=== PATIENT | male | born 1990 | race Caucasian/White ===

== ENCOUNTER 2019-01-09 18:34 | Emergency (ER) | payer MEDICAID ==
[~2019-01-09] VITALS: Ht 193 cm; Wt 108.2 kg
[2019-01-09 18:53] VITALS: BP 140/84
[2019-01-09] MEDS ORDERED: IBUPROFEN 800 MG TABLET PO ONE (19:45)
== END 2019-01-09 21:05 | disposition home or self-care (01) ==
LOC: EMS 18:36
DX: S62.620A Displaced fracture of middle phalanx of right index finger, initial encounter for closed fracture (principal); W21.05XA Struck by basketball, initial encounter; Y93.67 Activity, basketball; Y92.89 Other specified places as the place of occurrence of the external cause; Y99.8 Other external cause status

== ENCOUNTER 2019-01-26 20:44 | Emergency (ER) | payer MEDICAID ==
[~2019-01-26] VITALS: Ht 193 cm; Wt 109.1 kg
[2019-01-26 23:07] LABS: BASOPHILS % (AUTO) 0.7 % (0.0-2.0); HEMATOCRIT 42.1 % (41-53); HEMOGLOBIN 14.7 g/dL (13.5-17.5); LYMPHOCYTES # (AUTO) 2.9 K/uL (1.0-4.8); LYMPHOCYTES % (AUTO) 23.9 % (22.0-44.0); MEAN CORPUSCULAR HGB CONC 34.9 G/dL (31.0-37.0); MEAN CORPUSCULAR VOLUME 86 fL (80-100); MONOCYTES # (AUTO) 0.8 K/uL (0.1-1.0); MONOCYTES % (AUTO) 6.8 % (2.0-9.0); NEUTROPHILS % (AUTO) 66.6 % (40.0-70.0); PLATELET COUNT (AUTO) 230 K/uL (150-450); RED BLOOD CELL COUNT(AUTO) 4.89 MIL/uL (4.50-5.90); RED CELL DISTRIBUTION WIDTH 13.6 % (11.5-14.5)
[2019-01-27 00:05] VITALS: BP 131/80
== END 2019-01-27 00:10 | disposition home or self-care (01) ==
LOC: EMS 20:44
DX: K59.00 Constipation, unspecified (principal)
CPT/HCPCS: 82271